=== PATIENT | male | born 1945 | race Caucasian/White ===

== ENCOUNTER 2017-10-28 09:08 | Day surgery (SDC) | payer MEDICARE, BC, OTHER ==
[2017-10-28] MEDS ORDERED: LIDOCAINE 2% (SDV) 5 ML INJ (10:18)
[2017-10-28] MEDS ORDERED: PROPOFOL 60 ML (10:18)
== END 2017-10-28 12:11 | disposition home or self-care (01) ==
LOC: GIL 09:08
DX: K29.50 Unspecified chronic gastritis without bleeding (principal); D12.5 Benign neoplasm of sigmoid colon; K21.0 Gastro-esophageal reflux disease with esophagitis; K29.60 Other gastritis without bleeding; K64.8 Other hemorrhoids; I10 Essential (primary) hypertension; E78.5 Hyperlipidemia, unspecified; E11.9 Type 2 diabetes mellitus without complications
CPT/HCPCS: 43239; 82962; 88305; 88312